=== PATIENT | female | born 1960 | race Caucasian/White ===

== ENCOUNTER 2018-02-04 17:57 | Emergency (ER) | payer SELFPAY ==
--- NOTE | 2018-02-04 18:56 | ER Document Report ---
ED General - General Chief Complaint: Fall Stated Complaint: FALL Time Seen by Provider: 02/04/18 18:17 Notes: Patient is a 57-year-old male with no known chronic medical problems who presents after being found outside by her daughter confused, had lost bowel and bladder continence. EMS was contacted and the patient was subsequently transported to the emergency department. Since that time the daughter reports that the patient has come back to her normal self. The patient currently denies any symptoms beyond nausea. She does not recall the events leading up to how she was found in the patio. The only thing she can recall is that she felt warm and tried to go outside for fresh air. The daughter reports that the patient was altered for at least 20 minutes after regaining consciousness. No focal neurologic deficits were noted. No witnesses to the loss of consciousness or the events leading up to the daughter finding the patient lying on the ground. She has never had any events in the past similar to today. She has no prior history of syncope or seizures. She denies any pain to any location of her body. She denies any medications, alcohol or drugs. No recent head trauma. TRAVEL OUTSIDE OF THE [place] IN LAST 30 DAYS: No - Related Data Allergies/Adverse Reactions: No Known Allergies Allergy (Verified 02/04/18 18:04) Past Medical History - General Information source: Patient - Social History Smoking Status: Never Smoker Frequency of alcohol use: None Drug Abuse: None Lives with: Family Family History: Reviewed & Not Pertinent Patient has suicidal ideation: No Patient has homicidal ideation: No Renal/ Medical History: Denies: Hx Peritoneal Dialysis Past Surgical History: Reports: Hx Section - x3, Hx Oral Surgery - tonsillectomy Review of Systems - Review of Systems Notes: Constitutional: Negative for fever. HENT: Negative for sore throat. Eyes: Negative for visual changes. Cardiovascular: Negative for chest pain. Respiratory: Negative for shortness of breath. Gastrointestinal: Negative for abdominal pain, positive for nausea Genitourinary: Negative for dysuria. Musculoskeletal: Negative for back pain. Skin: Negative for rash. Neurological: Negative for headaches, weakness or numbness. 10 point ROS negative except as marked above and in HPI. Physical Exam - Vital signs Vitals: Resp Pulse Ox 15 99 02/04/18 18:03 02/04/18 18:03 Interpretation: Hypertensive Notes: PHYSICAL EXAMINATION: GENERAL: Well-appearing, well-nourished and in no acute distress. HEAD: Atraumatic, normocephalic. EYES: Pupils equal round and reactive to light, extraocular movements intact, sclera anicteric, conjunctiva are normal. ENT: nares patent, oropharynx clear without exudates. Moist mucous membranes. NECK: Normal range of motion, supple without lymphadenopathy LUNGS: Breath sounds clear to auscultation bilaterally and equal. No wheezes rales or rhonchi. HEART: Regular rate and rhythm without murmurs ABDOMEN: Soft, nontender, normoactive bowel sounds. No guarding, no rebound. No masses appreciated. EXTREMITIES: Normal range of motion, no pitting or edema. No cyanosis. NEUROLOGICAL: Face symmetric. Tongue protrudes midline. Extraocular motions intact. Pupils are 2 mm and equally reactive. Normal speech, normal gait. 5 out of 5 strength in both the distal and proximal upper and lower extremities bilaterally. Sensation is grossly intact throughout. Finger to nose testing normal. Pronator drift normal. PSYCH: Normal mood, normal affect. SKIN: Warm, Dry, normal turgor, no rashes or lesions noted. Course - Re-evaluation Re-evalutation: 02/04/18 18:54 Patient presents after what appears to be a new onset seizure. History is limited as there were no witnesses to the initial event, patient was found to be altered and confused by her daughter after defecating and urinating herself. The patient was also noted to be quite confused and took approximately 20 minutes to become alert and oriented 4. The prolonged period of confusion after the initial event which appeared to include loss of consciousness does suggest most probably an acute seizure of which the patient has no history. The patient has no focal neurologic deficits on examination and a TIA does not clinically make sense in this scenario. By definition she has not had an acute stroke as her NIH stroke scale is 0 and she has no deficits. Syncope would be an alternative consideration although the prolonged period of confusion after the event is very inconsistent with that diagnosis. Will proceed with labs, CT of the head, EKG and if these are unremarkable plan for discharge home with neurology outpatient follow-up. 02/04/18 20:10 CT the head shows microvascular ischemic changes that appear to be chronic in nature. Labs otherwise unremarkable. I have strongly advised the patient that she needs to follow-up with [place] neurology or [facility] and neurology for MRI, MRA of her head as well as EEG. There is no indication for an emergent MRI she remains without focal neurologic deficits, denies any complaints. At this time will discharge with return precautions and follow-up recommendations. Verbal discharge instructions given a the bedside and opportunity for questions given. Medication warnings reviewed. Patient is in agreement with this plan and has verbalized understanding of return precautions and the need for primary care follow-up in the next 24-72 hours. - Vital Signs Vital signs: Temp Pulse Resp BP Pulse Ox 97.3 F 16 152/90 H 100 02/04/18 18:05 02/04/18 20:01 02/04/18 20:01 02/04/18 20:01 - Laboratory Result Diagrams: 02/04/18 18:00 02/04/18 18:00 Laboratory results interpreted by me: 02/04/18 02/04/18 18:00 18:00 RDW 14.8 H Sodium 134.8 L - Diagnostic Test Radiology reviewed: Image reviewed, Reports reviewed Radiology results interpreted by me: 02/04/18 20:11 CT head: No acute intracranial bleeds or masses - EKG Interpretation by Me Additional EKG results interpreted by me: 02/05/18 03:49 Normal sinus rhythm. Rate 84. No ST elevations or depressions. QTC is 492. Discharge - Discharge Clinical Impression: New onset seizure Altered mental status Qualifiers: Altered mental status type: unspecified Qualified Code(s): R41.82 - Altered mental status, unspecified Condition: Good Disposition: HOME, SELF-CARE Additional Instructions: Today you had a seizure. It is very important that you do not engage in any activities that could result in severe injury should you have a seizure. Specifically, do not drive a vehicle, go into a body of water, take a bath, climb ladders, or operate any heavy machinery until you have been cleared by your neurologist. I strongly recommend either [facility] neurology or [place] [facility]y for follow-up. They will need to perform an MRI of your head and they may also consider an EEG. Please return to the ED immediately if you have multiple seizures close together, develop a severe headache, weakness, numbness , difficulty speaking, have a seizure in which you do not return to normal within 1 hour of the seizure, or have any other symptoms that are concerning to you. Prescriptions: Amoxicillin 1 tab PO TID #30 tab
--- NOTE | 2018-02-04 19:11 | EKG REPORT ---
SEVERITY:- BORDERLINE ECG - SINUS RHYTHM BORDERLINE PROLONGED QT INTERVAL : Confirmed by: Carlos Willis MD 04-Feb-2018 19:10:37
[2018-02-04 19:14] LABS: ABSOLUTE BASOPHILS # (AUTO) 0.1 10^3/uL (0.0-0.2); ABSOLUTE EOSINOPHILS # (AUTO) 0.3 10^3/uL (0.0-0.6); ABSOLUTE LYMPHOCYTES (AUTO) 1.7 10^3/uL (0.5-4.7); ABSOLUTE MONOCYTES (AUTO) 0.7 10^3/uL (0.1-1.4); ABSOLUTE NEUT (AUTO) 4.4 10^3/uL (1.7-8.2); EOSINOPHILS % (AUTO) 3.9 % (0-6); HEMATOCRIT 38.4 % (36.0-47.0); HEMOGLOBIN 12.9 g/dL (12.0-15.5); LYMPHOCYTES % (AUTO) 24.3 % (13-45); MEAN CORPUSCULAR HGB CONC 33.5 g/dL (32.0-36.0); MEAN CORPUSCULAR VOLUME 84 fl (80-97); MONOCYTES % (AUTO) 9.5 % (3-13); PLATELET COUNT 243 10^3/uL (150-450); RED CELL DISTRIBUTION WIDTH 14.8 % (11.5-14.0); SEGMENTED NEUTROPHILS % (AUTO) 61.3 % (42-78); TOTAL CELLS COUNTED % (AUTO) 100 %; WHITE BLOOD COUNT 7.1 10^3/uL (4.0-10.5)
[2018-02-04 19:25] LABS: ALANINE AMINOTRANSFERASE 34 U/L (9-52); ALKALINE PHOSPHATASE 83 U/L (38-126); ANION GAP 11 (5-19); ASPARTATE AMINO TRANSFERASE 28 U/L (14-36); BILIRUBIN,DIRECT 0.4 mg/dL (0.0-0.4); BILIRUBIN,TOTAL 0.5 mg/dL (0.2-1.3); BLOOD UREA NITROGEN 14 mg/dL (7-20); CALCIUM 9.2 mg/dL (8.4-10.2); CARBON DIOXIDE 25 mmol/L (22-30); CHLORIDE 99 mmol/L (98-107); GLUCOSE 107 mg/dL (75-110); POTASSIUM 3.9 mmol/L (3.6-5.0); SODIUM 134.8 mmol/L (137-145); TOTAL PROTEIN 7.1 g/dL (6.3-8.2)
--- NOTE | 2018-02-04 19:29 | RADIOLOGY REPORT (SQ) ---
EXAM DESCRIPTION: CT HEAD WITHOUT COMPLETED DATE/TIME: 02/04/2018 7:06 pm REASON FOR STUDY: new onset seizure COMPARISON: None. TECHNIQUE: Axial images acquired through the brain without intravenous contrast. Images reviewed wi th bone, brain and subdural windows. Images stored on PACS. All CT scanners at this facility use dose modulation, iterative reconstruction, and/or weight based d osing when appropriate to reduce radiation dose to as low as reasonably achievable (ALARA). [facility]: Dose Right [facility]: CareDose [facility]: Dose Right [facility]: Teradose 4D [facility]: [employer] RADIATION DOSE: CT Rad equipment meets quality standard of care and radiation dose reduction techniq ues were employed. CTDIvol: 55.2 mGy. DLP: 946 mGy-cm. mGy. LIMITATIONS: None. FINDINGS: VENTRICLES: Age-appropriate. CEREBRUM: No hemorrhage. No midline shift. Areas of low density in the white matter most likely du e to micro-vascular ischemic change, most focally in the right frontotemporal region. CEREBELLUM: No masses. No hemorrhage. No alteration of density. No evidence for acute infarction. EXTRAAXIAL SPACES: Mild age-related involutional change. No fluid collections. No masses. ORBITS AND GLOBE: No intra- or extraconal masses. Normal contour of globe without masses. CALVARIUM: No fracture. PARANASAL SINUSES: No fluid or mucosal thickening. SOFT TISSUES: No mass or hematoma. OTHER: No other significant finding. IMPRESSION: No hemorrhage. No midline shift. Areas of low density in the white matter most likely due to micro-vascular ischemic change, most focally in the right frontotemporal region. Consider MRI to further characterize. EVIDENCE OF ACUTE STROKE: NO. TECHNICAL DOCUMENTATION: JOB ID: [id number] Quality ID # [id number]: Final reports with documentation of one or more dose reduction techniques (e.g., Au tomated exposure control, adjustment of the mA and/or kV according to patient size, use of iterative reconstruction technique) 2010 [employer]- All Rights Reserved Reading location - IP/workstation name: [email or web address]
[2018-02-04] MEDS ORDERED: ONDANSETRON ODT 4 MG TAB (6 TAB/ER DISP) PO PRN (20:11)
[2018-02-04 20:36] VITALS: BP 152/90
== END 2018-02-04 20:41 | disposition home or self-care (01) ==
LOC: ER 17:57
DX: R56.9 Unspecified convulsions (principal); R41.82 Altered mental status, unspecified; R11.0 Nausea
CPT/HCPCS: 36415; 70450; 80053; 84484; 85025; 93005; 93010; 99285

== ENCOUNTER → 2018-09-29 | Outpatient (CLI) | payer OTHER ==
[2018-09-29 10:27] LABS: ABSOLUTE BASOPHILS # (AUTO) 0.1 10^3/uL (0.0-0.2); ABSOLUTE EOSINOPHILS # (AUTO) 0.2 10^3/uL (0.0-0.6); ABSOLUTE MONOCYTES (AUTO) 0.5 10^3/uL (0.1-1.4); ABSOLUTE NEUT (AUTO) 3.9 10^3/uL (1.7-8.2); BASOPHILS % (AUTO) 1.1 % (0-2); EOSINOPHILS % (AUTO) 2.8 % (0-6); HEMATOCRIT 38.5 % (36.0-47.0); HEMOGLOBIN 13.1 g/dL (12.0-15.5); LYMPHOCYTES % (AUTO) 18.3 % (13-45); MEAN CORPUSCULAR HEMOGLOBIN 28.8 pg (27.0-33.4); MEAN CORPUSCULAR HGB CONC 34.1 g/dL (32.0-36.0); MEAN CORPUSCULAR VOLUME 84 fl (80-97); MONOCYTES % (AUTO) 8.4 % (3-13); PLATELET COUNT 249 10^3/uL (150-450); RED BLOOD COUNT 4.57 10^6/uL (3.72-5.28); RED CELL DISTRIBUTION WIDTH 14.7 % (11.5-14.0); SEGMENTED NEUTROPHILS % (AUTO) 69.4 % (42-78); TOTAL CELLS COUNTED % (AUTO) 100 %; WHITE BLOOD COUNT 5.6 10^3/uL (4.0-10.5)
[2018-09-29 10:57] LABS: ALANINE AMINOTRANSFERASE 29 U/L (9-52); ALBUMIN 3.8 g/dL (3.5-5.0); ALKALINE PHOSPHATASE 96 U/L (38-126); ANION GAP 8 (5-19); ASPARTATE AMINO TRANSFERASE 21 U/L (14-36); BILIRUBIN,DIRECT 0.3 mg/dL (0.0-0.4); BILIRUBIN,TOTAL 0.7 mg/dL (0.2-1.3); BLOOD UREA NITROGEN 19 mg/dL (7-20); CALCIUM 9.7 mg/dL (8.4-10.2); CARBON DIOXIDE 28 mmol/L (22-30); CHLORIDE 104 mmol/L (98-107); CHOLESTEROL 163.09 mg/dL (0-200); GLUCOSE 92 mg/dL (75-110); POTASSIUM 4.6 mmol/L (3.6-5.0); SODIUM 139.9 mmol/L (137-145); TRIGLYCERIDES 53 mg/dL (<150)
[2018-09-29 11:18] LABS: DIRECT LDL 109 mg/dL (<100)
== END ==
LOC: OD 08:43
PROVIDERS: ATTEND Family Medicine Geriatric Medicine
DX: G40.909 Epilepsy, unspecified, not intractable, without status epilepticus (principal); Z79.899 Other long term (current) drug therapy
CPT/HCPCS: 36415; 80053; 80061; 84443; 85025

== ENCOUNTER → 2018-10-25 | Outpatient (CLI) | payer OTHER ==
--- NOTE | 2018-10-25 18:24 | NEURO WORKBENCH EEG REPORT ---
EEG Report Patient: Poly Polo ID: [id number] Referring Doctor: Steven Mckeon Date: 10/25/2018 Reason for study: Evaluate Epileptiform activity Medications: Levetiracetam, MVI History: This is a 57 year old female with a history of passing out twice and a reported seizure in 2018 and possibly in 2019 as well. This EEG was requested for evaluation of epileptiform activity. EEG Interpretation: This EEG was recorded during wakefulness. The awake EEG is characterized by a well organized and reactive background with frequent eye blink artifact. There is not a well developed posterior dominant rhythm (PDR), but the predominant background consists of diffuse approximately 15-20 Hz low amplitude beta activity with intermixed fragmentary alpha activity. The EEG is symmetric in amplitudes and frequencies. There were occasional periods of EMG and/or electrode artifact obscuring portions of the recording. Photic stimulation resulted in excellent photic driving, and there was no epileptiform activity elicited with photic stimulation. Hyperventilation resulted in minimal slowing of the background EEG activity (normal for age) and no epileptiform activity was elicited. No stage I or stage II sleep was recorded. There were no epileptiform abnormalities (no sharp waves and no spikes). There were no seizures. The EKG showed a regular rhythm with typically approximately 60-80 beats per minute, and frequent obscuration of the one lead EKG channel by artifact. EEG Impression: This EEG is within normal limits for age. The prominent beta activity can be normal for age especially in a non-relaxed state, or can also be seen with sedative and hypnotic medication use (ie benzodiazepines). There was no epileptiform activity or seizures. A single normal routine EEG does not rule out the possibility of epilepsy. If there is high clinical suspicion for epilepsy, then additional EEG evaluation should be considered with a sleep-deprived EEG or more prolonged EEG monitoring. Note that the patient is reportedly taking levetiracetam which may potentially suppress interictal epileptiform activity. INTERPRETING NEUROLOGIST: Severo Molina MD Board certified by the [employer] [employer] in Neurology, Clinical Neurophysiology, and Sleep Medicine [facility]
== END ==
LOC: NEURO 08:23
PROVIDERS: ATTEND Pediatrics
DX: G40.909 Epilepsy, unspecified, not intractable, without status epilepticus (principal)
CPT/HCPCS: 95819

== ENCOUNTER → 2018-11-14 | Outpatient (CLI) | payer OTHER | LOC: WI 15:48 | PROVIDERS: ATTEND Family Medicine Geriatric Medicine | DX: Z12.31 Encounter for screening mammogram for malignant neoplasm of breast (principal) | CPT/HCPCS: 77067 ==